=== PATIENT | female | born 1930 | race Caucasian/White ===

== ENCOUNTER → 2016-09-16 | Outpatient (CLI) | payer MEDICARE ==
[~2016-09-16] MED LIST: ACTOS DPS15 MG PO; AMARYL2 MG PO; ASA CHILDREN'S81 MG PO; MICRO-K DPS10 MEQ PO; NITROSTAT0.4 MG SL; OMEGA-3 DPS1000 MG PO; OYSTER SHELL C500 MG PO; PRAVACHOL40 MG PO; PRED FORTE 1% DP5 ML OU; PRILOSEC DPS20 MG PO; SYNTHROID112 MCG PO; TENORMIN-DPS25 MG PO; VITAMIN D31000 UNIT PO
== END | disposition home or self-care (01) ==
LOC: RAD.S 13:12
DX: Z13.820 Encounter for screening for osteoporosis (principal)